=== PATIENT | male | born 1945 | race Caucasian/White ===

== ENCOUNTER 2017-04-21 09:45 | Emergency (ER) | payer MEDICARE ==
[2017-04-21 10:05] VITALS: BP 121/59
--- NOTE | 2017-04-21 10:22 | ERNOTE ---
Integumentary HPI - Narrative Date of Service: 04/21/17 - General Time Seen by Provider: 04/21/17 10:09 Source: patient, old records - Immun/Allergies/Home Medications Immunizations: IMMUNIZATION HX Immunizations Up to Date Yes History of Influenza Vaccine Yes Hx Pneumococcal Vaccination No Allergies/Adverse Reactions: Allergies Allergy/AdvReac Type Severity Reaction Status Date / Time No Known Allergies Allergy Verified 04/21/17 10:07 Home Medications: HOME MEDICATIONS Calcium Carbonate/Vitamin D3 [Calcium 600 + D Tablet] 1 each PO DAILY 06/21/15 [ Last Taken Unknown] Carvedilol [Coreg] 12.5 mg PO BID 06/21/15 [Last Taken Unknown] Gabapentin 300 mg PO TID 06/21/15 [Last Taken Unknown] Multivit-Min/FA/Lycopen/Lutein [Centrum Silver Tablet] 1 each PO DAILY 06/21/15 [Last Taken Unknown] Niacin (Inositol Niacinate) [Niacin 500 mg Capsule] 500 mg PO DAILY 06/21/15 [ Last Taken Unknown] Pravastatin Sodium 40 mg PO HS 06/21/15 [Last Taken Unknown] Albuterol Sulfate [Ventolin Hfa] 8 gm IH PRN PRN 06/22/15 [Last Taken Unknown] Albuterol Sulfate/Ipratropium [Duoneb 2.5-0.5MG/3ML Soln] 3 ml IH TID #1 nebu [Last Taken Unknown] Hydrocortisone [Hydrocortisone 1% Cream] 1 appl TP BID #1 tube 04/21/17 [Last Taken Unknown] predniSONE [Prednisone] 3 tab PO DAILY #9 tab 04/21/17 [Last Taken Unknown] - History of Present Illness Narrative: Pt. comes in with c/o rash on Bilat inner arms that started on his L arm four days ago after picking beans in his garden. Pt. states taht it since spread to his R arm and he has been using aloe on it without relief. Pt. denies any SOB, CP, NVD, fever, recent illness or injury or aggravating factors. Review of Systems - Review of Systems Constitutional: Present: no symptoms reported. Absent: weakness, fatigue, malaise EYE: Present: no symptoms reported ENT: Present: no symptoms reported Respiratory: Present: no symptoms reported. Absent: shortness of breath, cough , wheezing Cardiology: Present: no symptoms reported. Absent: chest pain, palpitations, edema Gastrointestinal/Abdominal: Present: no symptoms reported. Absent: nausea, vomiting, diarrhea Genitourinary: Present: no symptoms reported Musculoskeletal: Present: no symptoms reported. Absent: back pain, joint pain Skin: Present: rash - diffuse macular on B arms mostly on inner arms Neurological: Present: no symptoms reported Endocrine: Present: no symptoms reported Hematologic/Lymphatic: Present: no symptoms reported All Other Systems: All systems neg except as marked - Patient's Past Medical History Patient History - Medical: Diabetes Type 2, Osteoarthritis, Other Patient History - Cardiac/Respiratory: COPD, Hypertension, Hyperlipidemia Patient History - Cancer: No Hx of Cancer Patient History - Surgical Procedures: Back Surgery, Colonoscopy, Other Patient History - Other: None - Family History Mother Family History - Medical: Family History - Cardiac/Respiratory: Coronary Heart Disease Father Family History - Medical: Family History - Cardiac/Respiratory: Coronary Heart Disease - Social History Living Situations: home Psych History: No pertinent hx - Immunizations Immunizations Up to Date: Yes Hx Pneumococcal Vaccination: No History of Influenza Vaccine: Yes Physical Exam - Physical Exam General Appearance: Present: wd/wn, alert, no apparent distress Head Exam: Present: normal inspection, no evidence of injury Eye Exam: Normal inspection: bilateral Ears, Nose, Throat: Present: normal ENT inspection, normal pharynx. Absent: pharyngeal swelling Neck: Present: normal inspection Respiratory: Present: no respiratory distress, normal breath sounds, no accessory muscle use, chest nontender, lungs clear Cardiovascular/Chest: Present: regular rate, rhythm, no murmur, normal peripheral pulses Back Exam: Present: normal inspection Extremity Exam: Present: non-tender, normal range of motion, no edema Neurological Exam: Present: alert, oriented, normal mood/affect, no motor/ sensory deficits Skin Exam: Present: skin rash - diffuse macular on B arms mostly on inner arms ED Progress - Vital Signs Patient's Vital Signs:: I have reviewed the patient's vital signs. Vital Signs: Vital Signs 04/21/17 10:03 Temperature 37.0 C Pulse Rate 56 L Respiratory 16 Rate Blood Pressure 121/59 O2 Sat by Pulse 97 Oximetry - Progress/Reassessment Chief Complaint: Rash Progress:: Unchanged Departure Clinical Impression: Poison brigid dermatitis - Departure Disposition: Home self-care Condition: Good Instructions: Poison Brigid Dermatitis, [id number] Additional Instructions: Please follow up with primary provider if not improved in 2-3 days. Referrals: Jim Rivas MD [Primary Care Provider] - Prescriptions: Hydrocortisone [Hydrocortisone 1% Cream] 1 appl TP BID #1 tube predniSONE [Prednisone] 3 tab PO DAILY #9 tab
== END 2017-04-21 10:40 | disposition home or self-care (01) ==
LOC: ER 09:45
DX: L23.7 Allergic contact dermatitis due to plants, except food (principal); E11.9 Type 2 diabetes mellitus without complications; M19.90 Unspecified osteoarthritis, unspecified site; J44.9 Chronic obstructive pulmonary disease, unspecified; I10 Essential (primary) hypertension; E78.5 Hyperlipidemia, unspecified

== ENCOUNTER 2017-06-30 07:24 | Day surgery (SDC) | payer MEDICARE ==
--- NOTE | 2017-06-30 07:57 | OR ---
Anesthesia Pre Procedure Eval Date of Service: 06/30/17 Pre Procedure Evaluation: Last Vital Signs Temp 36.0 C L 06/30/17 07:36 Pulse 53 L 06/30/17 07:36 Resp 19 06/30/17 07:36 BP 119/75 06/30/17 07:36 Pulse Ox 97 06/30/17 07:36 Anesthesia Pre Procedure Evaluation DATE: 06/30/2017. TIME: 0750. INDICATIONS: Chronic low back pain, degenerative disc disease, herniated lumbar disc. PAST MEDICAL HISTORY: Is a 71-year-old male with a history of low back pain, left hip pain, lumbar fusion. EXAM: MRI report was reviewed. Pain is 2/10 on pain scale at present. ASSESSMENT OF MEDICAL STATUS: O.K. to proceed with SATYA. PLANNED PROCEDURE: Fluoroscopic guided left epidural steroid injection L12. Home Medications: HOME MEDICATIONS Gabapentin 300 mg PO TID 06/21/15 [Last Taken Unknown] Multivit-Min/FA/Lycopen/Lutein [Centrum Silver Tablet] 1 each PO DAILY 06/21/15 [Last Taken Unknown] Niacin (Inositol Niacinate) [Niacin 500 mg Capsule] 500 mg PO DAILY 06/21/15 [ Last Taken Unknown] Pravastatin Sodium 40 mg PO HS 06/21/15 [Last Taken Unknown] Albuterol Sulfate [Albuterol Sulfate 2.5 MG/3 ML] 2.5 mg IH BID 06/26/17 [Last Taken Unknown] Albuterol Sulfate [Proair Hfa] 2 puff IH Q4H PRN 06/26/17 [Last Taken Unknown] Aspirin [Aspirin Enteric Coated] 81 mg PO DAILY 06/26/17 [Last Taken Unknown] Beta-Carotene(A) W-C , E/Min [Ocuvite] 1 tab PO DAILY 06/26/17 [Last Taken Unknown] Carvedilol [Coreg] 25 mg PO DAILY 06/26/17 [Last Taken Unknown] Magnesium 250 mg PO Q2D 06/26/17 [Last Taken Unknown] traMADol HCL [Ultram] 50 mg PO Q6H PRN 06/26/17 [Last Taken Unknown]
[2017-06-30] MEDS ORDERED: DEXAMETHASONE SOD PHOSPHATE 10 MG/ML VIAL IJ ONE (08:08)
[2017-06-30] MEDS ORDERED: IOPAMIDOL 20 ML VIAL IJ ONE (08:08)
[2017-06-30] MEDS ORDERED: LIDOCAINE HCL/PF 5 ML VIAL IJ ONE (08:08)
--- NOTE | 2017-06-30 08:40 | OR ---
Anesthesia Procedure Note - Anesthesia Procedure Note Date of Service: 06/30/17 Narrative: Vital Signs - Last Taken Temp 36.0 C L 06/30/17 07:36 Pulse 53 L 06/30/17 07:36 Resp 19 06/30/17 07:36 BP 119/75 06/30/17 07:36 Pulse Ox 97 06/30/17 07:36 06/30/17 08:37 ANESTHESIA PROCEDURE NOTE Date of Procedure: 06/30/2017. Time of procedure: 804. Performed by: Jin Ni CRNA Pre Press Manager: None. Preprocedure diagnosis: Chronic low back pain, degenerative disc disease, herniated lumbar disc. Post procedure diagnosis: Same. Procedure: Left fluoroscopic guided epidural Steroid Injection L1-2. Indications: This 71-year-old male with a history of low back pain and left hip pain he has a history of lumbar fusion with pedicle screws and rods. Potential risks and benefits of the procedure were discussed with the patient and consent was obtained. Findings: See below. Details of the procedure: The patient was brought back to operating room #3. The patient was then placed in the prone position to comfort. DuraPrep was applied to the patient's back. Patient was then draped in sterile fashion. Lidocaine 1% was infiltrated to the skin and subcutaneous tissues at the level of the L1-2 interspace using fluoroscopic guidance. The epidural space was identified using a 20-gauge Tuohy needle with [id number] technique. 2 mL of Isovue contrast was then injected after negative aspiration for blood and CSF. The epidural space was outlined in the AP and lateral views. Preservative free Decadron 10 mg + 5 mL of 1% preservative-free lidocaine was administered to the epidural space after negative aspiration for blood and CSF. The Tuohy needle was removed intact. A Band-Aid was applied to the patient's back. The patient was then placed in a supine position for 5 minutes before returning to the ambulatory surgical unit. Total fluoroscopy time: 34.1 seconds. Cumulative dose: 16.51 mGy. EBL: Minimal. Fluids: N/A. Specimen: N/A. Post procedure condition: The patient tolerated the procedure well. No complications were noted. No motor weaknesses or paresthesias were noted upon discharge. Thank you for this consultation. Jin Ni CRNA
[2017-06-30 09:46] VITALS: BP 119/76
== END 2017-06-30 07:25 | disposition home or self-care (01) ==
LOC: AMB 07:24
PROVIDERS: ATTEND Internal Medicine
PROC: 3E0S33Z Introduction of Anti-inflammatory into Epidural Space, Percutaneous Approach (ICD-10-PCS; 2017-06-30)
PROC: 3E0S3BZ Introduction of Anesthetic Agent into Epidural Space, Percutaneous Approach (ICD-10-PCS; principal; 2017-06-30 08:00)
DX: M51.36 Other intervertebral disc degeneration, lumbar region (principal); M48.061 Spinal stenosis, lumbar region without neurogenic claudication

== ENCOUNTER 2017-09-29 21:47 | Emergency (ER) | payer MEDICARE ==
--- NOTE | 2017-09-29 22:29 | ERNOTE ---
Abdominal HPI - General Chief Complaint: Abdominal Pain Time Seen by Provider: 09/29/17 22:25 Source: patient Exam Limitations: no limitations - Immun/Allergies/Home Medications Immunizatons: IMMUNIZATION HX Immunizations Up to Date Yes History of Influenza Vaccine Yes Hx Pneumococcal Vaccination Yes Allergies/Adverse Reactions: Allergies No Known Allergies Allergy (Verified 06/30/17 07:41) Home Medications: HOME MEDICATIONS Gabapentin 300 mg PO TID 06/21/15 [Last Taken Unknown] Multivit-Min/FA/Lycopen/Lutein [Centrum Silver Tablet] 1 each PO DAILY 06/21/15 [Last Taken Unknown] Niacin (Inositol Niacinate) [Niacin 500 mg Capsule] 500 mg PO DAILY 06/21/15 [ Last Taken Unknown] Pravastatin Sodium 40 mg PO HS 06/21/15 [Last Taken Unknown] Albuterol Sulfate [Albuterol Sulfate 2.5 MG/3 ML] 2.5 mg IH BID 06/26/17 [Last Taken Unknown] Albuterol Sulfate [Proair Hfa] 2 puff IH Q4H PRN 06/26/17 [Last Taken Unknown] Aspirin [Aspirin Enteric Coated] 81 mg PO DAILY 06/26/17 [Last Taken Unknown] Beta-Carotene(A) W-C , E/Min [Ocuvite] 1 tab PO DAILY 06/26/17 [Last Taken Unknown] Carvedilol [Coreg] 25 mg PO DAILY 06/26/17 [Last Taken Unknown] Magnesium 250 mg PO Q2D 06/26/17 [Last Taken Unknown] - History of Present Illness Narrative: Pt has had abdominal pain for 3-5 days. has been worsening. He took a bottle of magnesium citrate two separate times and feel relief for a short time after having watery BM's. He has had worsening symptoms for 5-6 hours tonight Timing: getting worse Quality: moderate, aching, cramping Review of Systems - Review of Systems Constitutional: Absent: recent illness, fever Respiratory: Absent: shortness of breath Cardiology: Absent: chest pain Gastrointestinal/Abdominal: Present: See HPI, nausea, constipation Musculoskeletal: Absent: back pain, muscle pain Skin: Present: no symptoms reported Neurological: Present: no symptoms reported Endocrine: Absent: excessive sweating, flushing Hematologic/Lymphatic: Present: no symptoms reported Psych: Present: no symptoms reported - Patient's Past Medical History Patient History - Medical: Diabetes Type 2, Osteoarthritis, Other Patient History - Cardiac/Respiratory: COPD, Hypertension, Hyperlipidemia Patient History - Cancer: No Hx of Cancer Patient History - Surgical Procedures: Back Surgery, Colonoscopy, Other, Orthopedic Patient History - Other: None - Family History Mother Family History - Medical: Family History - Cardiac/Respiratory: Coronary Heart Disease Father Family History - Medical: Family History - Cardiac/Respiratory: Coronary Heart Disease - Social History Living Situations: spouse Psych History: No pertinent hx Smoking Status: Former smoker Have you smoked in the past 12 months: No Do you dip or chew tobacco: No Alcohol Use: occasionally Drug Use: none - Immunizations Immunizations Up to Date: Yes Hx Pneumococcal Vaccination: Yes History of Influenza Vaccine: Yes Physical Exam - Physical Exam General Appearance: Present: wd/wn, alert, no apparent distress Head Exam: Present: normal inspection, no evidence of injury Ears, Nose, Throat: Present: normal ENT inspection Neck: Present: normal inspection, nontender Respiratory: Present: no respiratory distress, normal breath sounds, no accessory muscle use, lungs clear Cardiovascular/Chest: Present: regular rate, rhythm, no murmur Gastrointestinal/Abdominal: Present: normal bowel sounds, tenderness - lower abdomen . Absent: distended, guarding, rebound Back Exam: Present: normal inspection, normal range of motion Extremity Exam: Present: normal inspection, normal range of motion Neurological Exam: Present: alert, oriented, normal mood/affect, no motor/ sensory deficits Skin Exam: Present: normal color, warm/dry Lymphatic Exam: Present: no adenopathy ED Progress - Results and Orders Patient's Lab Results:: I have reviewed the patient's lab results. Results and Orders: Laboratory Tests 09/29/17 09/29/17 22:35 22:35 WBC 13.1 H Hgb 12.7 L Hct 38.6 L Plt Count 148 L Neutrophils # (Manual) 9.3 H Sodium 138 Potassium 4.6 Chloride 102 Carbon Dioxide 31.1 BUN 26 H Creatinine 1.04 Random Glucose 122 H Calcium 8.7 Total Bilirubin 0.8 AST 18 ALT 27 Alkaline Phosphatase 91 Total Protein 7.5 Albumin 4.1 - Vital Signs Patient's Vital Signs:: I have reviewed the patient's vital signs. Vital Signs: Vital Signs 09/29/17 21:53 Temperature 36.1 C L Pulse Rate 62 Respiratory 16 Rate Blood Pressure 144/72 O2 Sat by Pulse 98 Oximetry - X-Ray X-Ray #1 X-Ray: abdomen Interpretation: Interp. by me X-ray Comments: stool and mild a/f level on the right, no distended bowel. non-specific gas pattern. - CT/Ultrasound CT/Ultrasound Narrative: CT abd/ pelvis with contrast. Non specific noncalcified pulmonary nodules dependent subsegmental atlectasis atheromatous plaque Evidence for acute pancreatitis renal cysts No obstruction, diverticulitis, appendicitis or obstructive uropathy diverticulosis - Progress/Reassessment Chief Complaint: Abdominal Pain Progress:: Improved Progress Note-Subjective: 09/30/17 00:03 spoke with the patient about CT. Confirmed no allergy to contrast, pt and state he has not had any previous reaction. 09/30/17 06:11 CT suggested acute pancreatitis but amylase and lipase are normal and pt has no upper abdominal pain or tenderness. Departure Clinical Impression: Constipation by delayed colonic transit - Departure Disposition: Home self-care Condition: Good Instructions: Constipation, Adult, [id number] Additional Instructions: use a bulk laxative like miralax or benefiber instead of magnesium citrate if you need a laxative. Using a fiber supplement or increasing the fiber in your diet would be the best intermission coordinator solution Referrals: Jim Rivas MD [Primary Care Provider] -
[2017-09-29 22:40] LABS: Hematocrit 38.6 % (42.0-52.0); Hemoglobin 12.7 gm/dL (13.5-18.0); Mean Cell Volume 89.8 fl (78-100); Mean Corpuscular Hemoglobin 29.5 pg (27-31); Mean Corpuscular Hgb Conc 32.9 g/dl (32-36); Mean Platelet Volume 10.3 fl (6.0-9.5); Platelet Count 148 K/mm3 (150-450); Red Cell Distribution Width 12.2 % (11.5-14.0); White Blood Count 13.1 K/mm3 (4.0-10.5)
[2017-09-29 22:45] LABS: Total Cells Counted 100
[2017-09-29 22:53] LABS: Albumin * 4.1 gm/dl (3.4-5.0); Anion Gap 9.5 mmol/L (6.8-13.8); Bilirubin, Total 0.8 mg/dL (0.0-1.1); Ca. Corrected For Albumin 8.3 mg/dL (8.4-10.2); Calcium * 8.7 mg/dL (7.9-10.9); Carbon Dioxide 31.1 mmol/L (24-32.6); Potassium 4.6 mmol/L (3.4-4.6); Total Protein 7.5 gm/dL (6.2-8.2)
[2017-09-29 23:04] LABS: Atypical (Reactive) Lymph 1 % (0-2); Band 1 % (0-2.0); Basophil 1 % (0-1); Eosinophil 1 % (0-3); Lymphocyte 12 % (20-51); Monocyte 13 % (0-9); Neutrophil 71 % (42-75); Neutrophil # 9.3 K/mm3 (1.3-6.0)
[2017-09-29 23:06] LABS: Dohle Bodies Trace; Platelet Estimate Normal (NORMAL); RBC Morphology Normal (NORMAL)
[2017-09-30] MEDS ORDERED: DIATRIZOATE MEGLUMINE, SODIUM 30 ML BTL ONE (00:02)
[2017-09-30] MEDS: DIATRIZOATE MEGLUMINE, SODIUM 30 ML BTL PO ONE (00:13)
[2017-09-30] MEDS ORDERED: NALBUPHINE HCL 20 MG/ML AMPUL ONE (04:48)
[2017-09-30] MEDS ORDERED: ONDANSETRON HCL/PF 2 MG/ML VIAL ONE (04:48)
[2017-09-30] MEDS: ONDANSETRON HCL/PF 2 MG/ML VIAL IV ONE (04:51)
[2017-09-30] MEDS: NALBUPHINE HCL 20 MG/ML AMPUL IV ONE (04:51)
[2017-09-30 08:40] VITALS: BP 135/56
== END 2017-09-30 06:34 | disposition home or self-care (01) ==
LOC: ER 21:47
DX: K59.01 Slow transit constipation (principal); Z87.891 Personal history of nicotine dependence; E78.5 Hyperlipidemia, unspecified; I10 Essential (primary) hypertension; J44.9 Chronic obstructive pulmonary disease, unspecified
CPT/HCPCS: 36415; 74019; 74177; 80053; 82150; 83690; 85025; 96374; 96375; 99284; J2405